=== PATIENT | male | born 1970 | race American Indian/Alaskan Native ===

== ENCOUNTER 2017-01-17 08:19 | Inpatient (IN) | payer MEDICAID, OTHER ==
[2017-01-17] MEDS ORDERED: Sodium Chloride 0.9% 1,000 ML IV STA (09:13)
[2017-01-17] MEDS ORDERED: Sodium Chloride 0.9% 1,000 ML ONE (09:43)
[2017-01-17 09:44] LABS: BASO % 0.7 % (0.0-2.0); EOS # 0.2 K/uL (0.0-0.7); EOS % 2.5 % (0.0-4.0); HEMATOCRIT 40.3 % (35.0-51.0); MEAN CORPUSCULAR HEMOGLOBIN 29.9 pg (27.0-31.0); MEAN CORPUSCULAR HGB CONC 33.6 g/dL (33.0-37.0); MEAN PLATELET VOLUME 7.9 fL (7.2-11.7); MONO # 0.7 K/uL (0.0-0.8); MONO % 10.7 % (0.0-10.0); WHITE BLOOD COUNT 6.2 K/uL (4.8-10.8)
[2017-01-17 09:51] LABS: CHLORIDE 102 mmol/L (98-107); POTASSIUM 3.8 mmol/L (3.6-5.2); SODIUM 139 mmol/L (132-148)
[2017-01-17 09:53] LABS: ALB/GLOB RATIO 1.2 (1.0-2.1); ALKALINE PHOSPHATASE 83 U/L (38-126); AMYLASE 83 U/L (30-110); AST/SGOT 30 U/L (17-59); BILIRUBIN,TOTAL 0.4 mg/dL (0.2-1.3); BLOOD UREA NITROGEN 8 mg/dL (9-20); CARBON DIOXIDE 28 mmol/L (22-30); GFR AFRICAN-AMERICAN > 60; GLUCOSE,RANDOM 86 mg/dL (75-110); TOTAL PROTEIN 7.2 g/dL (6.3-8.3)
[2017-01-17 09:54] LABS: ALT/SGPT 31 U/L (21-72)
[2017-01-17 09:55] LABS: ALCOHOL SERUM 31 mg/dl (0-10)
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
[2017-01-17] MEDS ORDERED: Aluminum Hydroxide/Magnesium Hydroxide Susp (30 mL) PO PRN (14:53)
[2017-01-17] MEDS ORDERED: Buprenorphine Hydrochloride 2 mg SL ONE ×2 (15:25→18:00)
--- NOTE | 2017-01-17 15:30 | PCM.BM ---
<Liliam Gold - Last Filed: 01/17/17 15:28> Treatment Plan Problems - Problems identified on initial assessmt potiential for opiate withdrawal Date Initiated: 01/18/17 Time Initiated: 15:29 Assessment reference: NA Status: Active Treatment assets and liabiliti Patient Assests: cooperative, ADL independent, cognitively intact Patient Liabilities: substance abuse - Milieu Protocol Maintain good personal hygiene: daily Encourage regular showers, daily Remind patient to perform daily oral care, daily Assist patient to perform ADL's Maintain personal safety: every shift Educate patient to report safety concerns to staff, every shift Monitor environment for contraband/sharps Medication safety: Monitor for expected outcome, potential side effects: every shift, Assess barriers to learning: every shift, Assess readiness for medication education: every shift <Keiry San - Last Filed: 01/18/17 12:05> - Diagnosis (1) Opiate dependence Status: Acute Interventions: 01/18/17 12:05 * Assess 7x/week regarding severity of withdrawal * Educate regarding risks, benefits, side effects and alternatives of medications * Use Motivational Interviewing for abstinence * Use CBT for relapse prevention * Medication management for withdrawal symptoms * Encourage medication assisted treatment * <Anay Encinas - Last Filed: 01/19/17 08:28> Family Contact Family involvement: Famliy/SO not involved Family contact: Patient declines to allow family contact at present - Goals for Treatment Patient goals for treatment: Transition from detox to inpatiet co-occurring program at [facility]. Discharge/Continuing Care - Education Needs Education Needs: Patient Medication, Patient Diagnosis/Disease Process, Patient Coping Skills, Patient Anger Management skills, Patient Placement options, Patient Community resources - Discharge Discharge Criteria: No longer exhibiting s/s of withdrawal, Reduction of target symptoms Discharge to:: Substance Abuse Rehab - Treatment Team Participation Patient/Family/SO Statement: 01/19/17 08:27 "I wanna go to a place that can handle both of my issues". Discussed with Family/SO: No Was Patient/Family/SO present at Treatment Team Meeting: Yes
[2017-01-18] MEDS ORDERED: Buprenorphine Hydrochloride 2 mg SL ONE ×2 (05:30→10:00)
--- NOTE | 2017-01-18 12:05 | PCM.PSYCH ---
Initial Psychiatric Evaluation - Initial Psychiatric Evaluation Type of Admission: Voluntary Legal Status: Capacity Chief Complaint (in patient's own words): "I needed detox" History of Present Illness and Precipitating Events: This is a 46-year-old -[place] male, with no child, recently homeless, unemployed. The patient is here for heroin detox. He says he uses 20 bags intranasally for the past 6 months. He also smokes $30 worth of cocaine daily, marijuana twice a week and drinks alcohol half pint every day. His longest sobriety was 3 years in his life and he started all these drugs when he was 15 years old. He has been to detox 3 times and rehabilitation once, he goes to AA and NA sometimes. Past psych history: He had anxiety and depression and he was admitted 3 or 4 times in the past but did not denies any psychiatric problems Medical history: Denies Family psych history: Denies Current Medications: Active Medications Generic Name Dose Route Start Last Admin Trade Name Freq PRN Reason Stop Dose Admin Al Hydrox/Mg Hydrox/Simethicone 30 ml 01/17/17 14:53 Maalox 30 Ml PO TID PRN Indigestion / Heartburn Amlodipine Besylate 5 mg 01/19/17 10:00 Norvasc PO DAILY ISIDRO Buprenorphine HCl 6 mg 01/19/17 10:00 Subutex SL 01/22/17 09:59 .TAPER ISIDRO Taper Clonidine HCl 0.1 mg 01/17/17 14:53 Catapres PO Q8 PRN COWS Score More or Equal to 5 Gabapentin 300 mg 01/17/17 18:00 01/18/17 10:06 Neurontin PO 300 mg BID ISIDRO Administration Hydroxyzine HCl 50 mg 01/17/17 14:53 01/18/17 04:09 Atarax PO 50 mg Q4H PRN Administration Anxiety Ibuprofen 600 mg 01/17/17 14:53 01/18/17 04:09 Motrin Tab PO 600 mg Q6H PRN Administration Pain, moderate (4-7) Loperamide HCl 2 mg 01/17/17 14:53 Imodium PO Q8 PRN Diarrhea Ondansetron HCl 4 mg 01/17/17 14:53 Zofran Tab PO Q8 PRN Nausea/Vomiting Trazodone HCl 100 mg 01/17/17 14:53 Desyrel PO HS PRN Insomnia Past Psychiatric History - Past Psychiatric History Previous Treatment History: Inpatient Pertinent Medical Hx (Current Medical&Sleep Prob, Allergies): Allergies Allergy/AdvReac Type Severity Reaction Status Date / Time No Known Allergies Allergy Unverified 01/17/17 08:22 No Known Home Med 01/17/17 Review of Systems - Neurological Neurological: UNREMARKABLE - Psychiatric Psychiatric: Abnormal Sleep Pattern, Anxiety, Difficulty Concentrating. absent : Depression, Hallucinations, Homicidal Ideation, Suicidal Ideation Mental Status Examination - Personal Presentation Personal Presentation: Looks stated age - Affect Affect: Constricted - Motor Activity Motor Activity: Calm - Reliability in Providing Information Reliability in Providing Information: Good - Speech Speech: Organized - Mood Mood: Anxious - Formal Thought Process Formal Thought Process: No Impairment - Cognitive Functions Orientation: Person, Place, Situation, Time Sensorium: Alert Attention/Concentration: Attentive Estimate of Intelligence: Average Judgement: Intact, as evidence by: Insight regarding need for hospitalization Memory: Recent intact, as evidence by: Ability to recall events of the day, Remote intact, as evidenced by: Abilit to recall sig. life events - Risk Risk: Withdrawal, Diminished functioning - Strength & Assets Inventory Strength & Assets Inventory: Cooperative - Limitations Limitations: Living alone, Other (unemployed) DSM 5 DX - DSM 5 DSM 5 Diagnosis: Opioid withdrawal Opioid use d/o - severe Alcohol use d/o - severe Cocaine use d/o - severe MDD, recurrent, mild DARREN? Tobacco use d/o mild Cannabis use d/o - mild - Recommended/Plan of Treatment Treatment Recommendations and Plan of Treatment: Subutex detox Gabapentin for augmentation and anxiety Librium for alcohol As needed meds and vitamins Attend groups and activities [place] for abstinence and CBT for relapse prevention Support and psychoeducation Consider and encourage MAT Refer to after care Consider antidep if needed 33 min Projected ELOS: 5 days Prognosis: Good with treatment Discharge Plan and Discharge Criteria: No wdw sxs Refer to rehab and MAT - Smoking Cessation Smoking Cessation Initiated: Yes
[2017-01-19] MEDS ORDERED: Buprenorphine Hydrochloride 2 mg SL ONE (01:42)
[2017-01-19] MEDS: Buprenorphine Hydrochloride 2 mg SL SCH (09:01)
--- NOTE | 2017-01-19 13:51 | PCM.PYCHPN ---
Psychiatric Progress Note - Psychiatric Progress Note Patient seen today, length of contact: 16 min Patient Chief Complaint: I am feeling anxious.' Problems Identified/Issues Discussed: Patient seen and evaluated, chart reviewed and discussed with the nurse. Patient reports irritability, anxiety and reports withdrawal symptoms including nausea, diarrhoea, cramps, sweating, joint pains and headaches. Patient reports irritable mood but denies any suicidal ideation or homicidal ideation. He denies any auditory or visual hallucinations. He started tolerating the withdrawal medications and denies any side effects. Supportive therapy and psychoeducation were given. Medication Change: Yes (subutex taper) Medical Record Reviewed: Yes Mental Status Examination - Cognitive Function Orientation: Person, Place, Situation, Time Memory: Intact Attention: WNL Concentration: Poor Association: WNL Fund of Knowledge: Poor - Mood Mood: Anxious - Affect Affect: Constricted - Speech Speech: Soft - Formal Thought Process Formal Thought Process: No Impairment - Suicidal Ideation Suicidal Ideation: No - Homicidal Ideation Homicidal Ideation: No Goal/Treatment Plan - Goal/Treatment Plan Need for Continued Stay: Discharge may exacerbated symptoms, Severe functional impairment Progress Toward Problem(s) and Goals/Treatment Plan: Opioid withdrawal Opioid use d/o - severe Alcohol use d/o - severe Cocaine use d/o - severe MDD, recurrent, mild DARREN? Tobacco use d/o mild Cannabis use d/o - mild Subutex detox Gabapentin for augmentation and anxiety Librium for alcohol As needed meds and vitamins Attend groups and activities [place] for abstinence and CBT for relapse prevention Support and psychoeducation Consider and encourage MAT Refer to after care Consider antidep if needed - Smoking Cessation Smoking Cessation Initiated: No
[2017-01-20] MEDS: Buprenorphine Hydrochloride 2 mg SL SCH (09:36)
--- NOTE | 2017-01-20 12:55 | PCM.PYCHPN ---
Psychiatric Progress Note - Psychiatric Progress Note Patient seen today, length of contact: 16 min Patient Chief Complaint: "I feel okay" Problems Identified/Issues Discussed: The pt is seen, chart reviewed, case discussed with staff. Pt reports feeling "so-so." Pt was given 6 mg Subutex today. Pt is restless and reports feeling anxious. Pt denies any nausea, vomiting, diarrhea. The pt is compliant with medications and reports no side-effects. Symptoms are improving but needs more time to stabilize. After care discussed, support and psychoeducation given. Medical Problems: None reported Diagnostic Results: Reviewed DSM 5 Symptoms Update: Improving with treatment Medication Change: Yes (subutex taper) Medical Record Reviewed: Yes Mental Status Examination - Cognitive Function Orientation: Person, Place, Situation, Time Memory: Intact Attention: WNL Concentration: WNL Association: [facility] Fund of Knowledge: [facility] Decription of patient's judgement and insights: Fair - Mood Mood: Anxious - Affect Affect: Other (Appropriate) - Speech Speech: Appropriate - Formal Thought Process Formal Thought Process: No Impairment - Suicidal Ideation Suicidal Ideation: No - Homicidal Ideation Homicidal Ideation: No Goal/Treatment Plan - Goal/Treatment Plan Need for Continued Stay: Remain at risks for inpatient hospitalization, Discharge may exacerbated symptoms, Severe functional impairment Progress Toward Problem(s) and Goals/Treatment Plan: Continue medications Support and psychoeducation daily Attend groups and activities daily After care planning by LUNA Estimated Date of D/C: 01/10/17 - Smoking Cessation Smoking Cessation Initiated: Yes
[2017-01-21] MEDS: Buprenorphine Hydrochloride 2 mg SL SCH (09:08)
--- NOTE | 2017-01-21 14:58 | PCM.PYCHPN ---
Psychiatric Progress Note - Psychiatric Progress Note Patient seen today, length of contact: 15 minutes Patient Chief Complaint: I'm feeling better today. Problems Identified/Issues Discussed: Patient seen. Chart reviewed. Case discussed with the staff. Issues related to illness and treatment were discussed with the patient. Reported compliant with treatment with no adverse affects. Tolerating treatment very well. Today patient reported he feels better than yesterday but still has some anxiety because of not drinking. We'll start Librium 25 mg by mouth every 12 when necessary for 24 hours and then stop. We will continue rest of the treatment as before. At the time of evaluation, patient was awake alert oriented 3, had no delusions, no auditory or visual hallucinations, no suicidal ideations or homicidal ideations. Medical Problems: None reported Diagnostic Results: Reviewed DSM 5 Symptoms Update: Improving with treatment Medication Change: Yes (Start Librium 25 mg every 12 when necessary) Medical Record Reviewed: Yes Mental Status Examination - Cognitive Function Orientation: Person, Place, Situation, Time Memory: Intact Attention: WNL Concentration: WNL Association: [facility] Fund of Knowledge: [facility] Decription of patient's judgement and insights: Fair - Mood Mood: Anxious (Less than before) - Affect Affect: Other (Appropriate) - Speech Speech: Appropriate - Formal Thought Process Formal Thought Process: No Impairment Psychotic Thoughts and Behaviors: None - Suicidal Ideation Suicidal Ideation: No - Homicidal Ideation Homicidal Ideation: No Goal/Treatment Plan - Goal/Treatment Plan Need for Continued Stay: Remain at risks for inpatient hospitalization, Discharge may exacerbated symptoms, Severe functional impairment Progress Toward Problem(s) and Goals/Treatment Plan: Continue medications Support and psychoeducation daily Attend groups and activities daily Start Librium 25 mg by mouth every 12 when necessary for alcohol withdrawal symptoms Continue rest of the treatment as before Wants to go to [facility] for continuation of treatment after discharge from the hospital Estimated Date of D/C: 01/10/17 - Smoking Cessation Smoking Cessation Initiated: Yes
--- NOTE | 2017-01-22 15:23 | PCM.PYCHPN ---
Psychiatric Progress Note - Psychiatric Progress Note Patient seen today, length of contact: 15 minutes Patient Chief Complaint: I'm feeling much better today. Problems Identified/Issues Discussed: Patient seen. Chart reviewed. Case discussed with the staff. Issues related to illness and treatment were discussed with the patient. Reported compliant with treatment with no adverse affects. Tolerating treatment very well. Today patient reported he feels much better than yesterday. At the time of evaluation , patient was awake alert oriented 3, had no delusions, no auditory or visual hallucinations, no suicidal ideations or homicidal ideations. Medical Problems: None reported Diagnostic Results: Reviewed DSM 5 Symptoms Update: Improving with treatment Medication Change: No Medical Record Reviewed: Yes Mental Status Examination - Cognitive Function Orientation: Person, Place, Situation, Time Memory: Intact Attention: WNL Concentration: WNL Association: [facility] Fund of Knowledge: [facility] Decription of patient's judgement and insights: Fair - Mood Mood: Anxious (Less than before) - Affect Affect: Other (Appropriate) - Speech Speech: Appropriate - Formal Thought Process Formal Thought Process: No Impairment Psychotic Thoughts and Behaviors: None - Suicidal Ideation Suicidal Ideation: No - Homicidal Ideation Homicidal Ideation: No Goal/Treatment Plan - Goal/Treatment Plan Need for Continued Stay: Remain at risks for inpatient hospitalization, Discharge may exacerbated symptoms, Severe functional impairment Progress Toward Problem(s) and Goals/Treatment Plan: Continue medications Support and psychoeducation daily Attend groups and activities daily Continue treatment as before Wants to go to [facility] for continuation of treatment after discharge from the hospital Estimated Date of D/C: 01/24/17 - Smoking Cessation Smoking Cessation Initiated: Yes
[2017-01-23 10:26] VITALS: RESP 18
--- NOTE | 2017-01-23 14:06 | PCM.PYCHPN ---
Psychiatric Progress Note - Psychiatric Progress Note Patient seen today, length of contact: 15 minutes Patient Chief Complaint: I'm feeling much better today. Problems Identified/Issues Discussed: Patient seen. Chart reviewed. Case discussed with the staff. Issues related to illness and treatment were discussed with the patient. Reported compliant with treatment with no adverse affects. Tolerating treatment very well. Today patient reported he feels much better. At the time of evaluation, patient was awake alert oriented 3, had no delusions, no auditory or visual hallucinations , no suicidal ideations or homicidal ideations. Medical Problems: None reported Diagnostic Results: Reviewed DSM 5 Symptoms Update: Improving with treatment Medication Change: No Medical Record Reviewed: Yes Mental Status Examination - Cognitive Function Orientation: Person, Place, Situation, Time Memory: Intact Attention: WNL Concentration: WNL Association: [facility] Fund of Knowledge: [facility] Decription of patient's judgement and insights: Fair - Mood Mood: Neutral - Affect Affect: Other (Appropriate) - Speech Speech: Appropriate - Formal Thought Process Formal Thought Process: No Impairment Psychotic Thoughts and Behaviors: None - Suicidal Ideation Suicidal Ideation: No - Homicidal Ideation Homicidal Ideation: No Goal/Treatment Plan - Goal/Treatment Plan Need for Continued Stay: Remain at risks for inpatient hospitalization, Discharge may exacerbated symptoms, Severe functional impairment Progress Toward Problem(s) and Goals/Treatment Plan: Continue medications Support and psychoeducation daily Attend groups and activities daily Continue treatment as before Wants to go to [facility] for continuation of treatment after discharge from the hospital Estimated Date of D/C: 01/24/17 - Smoking Cessation Smoking Cessation Initiated: Yes
[2017-01-24 09:28] VITALS: BP 121/73; PULSE 77; TEMP 98.3; O2SAT 100
--- NOTE | 2017-01-24 15:30 | PCM.PYCHDC ---
Mental Status Examination - Mental Status Examination Orientation: Person, Place, Situation, Time Memory: Intact Mood: Neutral Affect: Other (Appropriate) Speech: Appropriate Attention: WNL Concentration: WNL Association: WNL Fund of Knowledge: WNL Formal Thought Process: No Impairment Description of patient's judgement and insight: Fair Psychotic Thoughts and Behaviors: None Suicidal Ideation: No Current Homicidal Ideation?: No Discharge Summary - Discharge Note Reason for Hospitalization: Opiate use disorder Alcohol use disorder Cocaine use disorder Major depressive disorder Cannabis use disorder Consultations:: List each consultation separately and include: 1. Reason for request. 2. Findings. 3. Follow-up Summary of Hospital Course include:: 1. Description of specific treatment plan utilized for patients during their course of treatmen. 2. Summarize the time- course for resolution of acute symptoms and/or regressed behaviors. 3. Describe issues identified and worked on during hospitalization. 4. Describe medication utilized. 5. Describe medical problems identified and treated. 6. Reassessment of suicide risk Summary of Hospital Course: This is a 46-year-old -[place] male, with no child, recently homeless, unemployed. The patient is here for heroin detox. He says he uses 20 bags intranasally for the past 6 months. He also smokes $30 worth of cocaine daily, marijuana twice a week and drinks alcohol half pint every day. His longest sobriety was 3 years in his life and he started all these drugs when he was 15 years old. He has been to detox 3 times and rehabilitation once, he goes to and [facility] sometimes. Past psych history: He had anxiety and depression and he was admitted 3 or 4 times in the past but did not denies any psychiatric problems Medical history: Denies Family psych history: Denies During his stay in the hospital patient was started on buprenorphine taper for opiate withdrawal symptoms. Patient was also started on other when necessary medications. Patient also got help with Librium. With her treatment patient started feeling better. Today patient had no withdrawal symptoms, was stable and ready for discharge. At the time of evaluation and discharge, patient was awake alert oriented 3, had no delusions, no auditory or visual hallucinations , no suicidal ideations or homicidal ideations. Patient was discharged in a stable condition. - Final Diagnosis (DSM 5) Condition upon Discharge: STABLE Disposition: HOME/ ROUTINE Follow-up Treatment Plan: [facility] - Smoking Cessation Smoking Cessation Medication prescribed: Yes - Antipsychotic Medications Pt discharged on 2 or more routine antipsychotic medications: No
== END 2017-01-24 10:45 | disposition home or self-care (01) | DRG 745 ==
LOC: C.ER 08:19 → C.7D 14:17
PROVIDERS: ADMIT Psychiatry & Neurology Psychiatry; ATTEND Psychiatry & Neurology Psychiatry
PROC: HZ2ZZZZ Detoxification Services for Substance Abuse Treatment (ICD-10-PCS; principal; 2017-01-17)
PROC: HZ59ZZZ Individual Psychotherapy for Substance Abuse Treatment, Supportive (ICD-10-PCS; 2017-01-17)
PROC: HZ46ZZZ Group Counseling for Substance Abuse Treatment, Psychoeducation (ICD-10-PCS; 2017-01-17)
PROC: GZ3ZZZZ Medication Management (ICD-10-PCS; 2017-01-17)
PROC: GZHZZZZ Group Psychotherapy (ICD-10-PCS; 2017-01-17)
DX: F11.23 Opioid dependence with withdrawal (principal); F33.0 Major depressive disorder, recurrent, mild; F10.20 Alcohol dependence, uncomplicated; F41.1 Generalized anxiety disorder; F14.10 Cocaine abuse, uncomplicated; F12.10 Cannabis abuse, uncomplicated; S05.12XA Contusion of eyeball and orbital tissues, left eye, initial encounter; Y09 Assault by unspecified means; Y92.9 Unspecified place or not applicable; Z72.0 Tobacco use

== ENCOUNTER 2017-02-01 11:37 | Emergency (ER) | payer MEDICAID, OTHER ==
[2017-02-01 11:54] VITALS: BP 117/69; TEMP 98.5
--- NOTE | 2017-02-01 11:55 | C.PDOC ---
History Of Present Illness 46M requesting rx for gabapentin, motrin, and maalox. he says he has taken gabapentin for "body pain" for 4 years but he is currently in treatment at [facility] and they are not giving him his prior dose which he says was 800mg TID. he also usually takes motrin but says they are giving him a generic there that is irritating to his stomach and he would like brand name rx. he also is requesting maalox for stomach irritation as stated prior. Time Seen by Provider: 02/01/17 11:55 Chief Complaint (Nursing): Med Refill Past Medical History Vital Signs: Last Vital Signs Temp 98.5 F 02/01/17 11:52 Pulse 97 H 02/01/17 11:52 Resp 20 02/01/17 11:52 BP 117/69 02/01/17 11:52 Pulse Ox 99 02/01/17 11:55 - Medical History PMH: Denies: Diabetes, Hepatitis, HIV, HTN, Seizures, Sexually Transmitted Disease - [facility] Procedures DETOXIFICATION SERVICES FOR SUBSTANCE ABUSE TREATMENT (01/17/17) GROUP GEOMETRY PROFESSOR FOR SUBSTANCE ABUSE TREATMENT, PSYCHOEDUCATION (01/17/17) GROUP PSYCHOTHERAPY (01/17/17) INDIV PSYCHOTHERAPY FOR SUBSTANCE ABUSE TREATMENT, SUPPORT (01/17/17) MEDICATION MANAGEMENT (01/17/17) Family History: States: Other Other Family History: nc - Social History Hx Alcohol Use: Yes Hx Substance Use: Yes Review Of Systems Constitutional: Negative for: Fever Cardiovascular: Negative for: Chest Pain Respiratory: Negative for: Shortness of Breath Gastrointestinal: Negative for: Vomiting Physical Exam - Physical Exam Appears: Well, Non-toxic, No Acute Distress Skin: Warm, Dry Head: Atraumatic Eye(s): bilateral: PERRL Oral Mucosa: Moist Neck: Normal ROM Cardiovascular: Rhythm Regular Respiratory: No Decreased Breath Sounds, No Accessory Muscle Use Neurological/Psych: Oriented x3, Normal Motor, Normal Sensation, Other (no focal deficits) Gait: Steady ED Course And Treatment O2 Sat by Pulse Oximetry: 99 Disposition - Disposition Referrals: [facility] [Outside] Disposition: HOME/ ROUTINE Disposition Time: 12:18 Condition: GOOD Additional Instructions: Please follow up with your doctor. Return to the ER for any worsening symptoms or for any other concerns. Prescriptions: Gabapentin [Neurontin] 600 mg PO TID #21 tablet Ibuprofen [Motrin] 600 mg PO Q6H #10 tab Mag Hydrox/Aluminum Hyd/Simeth [Maalox Maximum Strength Susp] 30 ml PO BID PRN # 1 oral.susp PRN Reason: Indigestion Forms: General Discharge Instructions - Clinical Impression Clinical Impression: Medication refill
[2017-02-01] MEDS ORDERED: Alum-Mag Hydrox-Simethicone Susp (30 mL) PO STA (12:08)
[2017-02-01] MEDS ORDERED: Aluminum Hydroxide/Magnesium Hydroxide Susp (30 mL) ONE (12:13)
[2017-02-01 12:24] VITALS: PULSE 79; RESP 18; O2SAT 97
== END 2017-02-01 12:25 | disposition home or self-care (01) ==
LOC: C.ER 11:37 → SUPCPDRO 11:37 → C.ER 12:25
DX: Z76.0 Encounter for issue of repeat prescription (principal)

== ENCOUNTER 2017-05-31 07:49 | Inpatient (IN) | payer MEDICAID, OTHER ==
[2017-05-31 07:52] VITALS: BMI 31.1
[2017-05-31 08:49] LABS: BASO # 0.1 K/uL (0.0-0.2); BASO % 0.4 % (0.0-2.0); EOS % 0.2 % (0.0-4.0); HEMATOCRIT 43.5 % (35.0-51.0); LYMPH # 2.4 K/uL (1.0-4.3); LYMPH % 16.8 % (20.0-40.0); MEAN CELL VOLUME 87.6 fL (80.0-94.0); MEAN CORPUSCULAR HEMOGLOBIN 30.2 pg (27.0-31.0); MEAN CORPUSCULAR HGB CONC 34.4 g/dL (33.0-37.0); MEAN PLATELET VOLUME 7.9 fL (7.2-11.7); MONO % 6.7 % (0.0-10.0); WHITE BLOOD COUNT 14.5 K/uL (4.8-10.8)
[2017-05-31 09:00] LABS: ALB/GLOB RATIO 1.3 (1.0-2.1); ALCOHOL SERUM < 10 mg/dl (0-10); ALKALINE PHOSPHATASE 81 U/L (38-126); ALT/SGPT 43 U/L (21-72); AST/SGOT 49 U/L (17-59); BILIRUBIN,TOTAL 0.6 mg/dL (0.2-1.3); BLOOD UREA NITROGEN 12 mg/dL (9-20); CALCIUM 8.9 mg/dl (8.6-10.4); CARBON DIOXIDE 28 mmol/L (22-30); CHLORIDE 98 mmol/L (98-107); GFR AFRICAN-AMERICAN > 60; GLUCOSE,RANDOM 139 mg/dL (75-110); POTASSIUM 4.1 mmol/L (3.6-5.2); SODIUM 135 mmol/L (132-148); TOTAL PROTEIN 7.9 g/dL (6.3-8.3)
[2017-05-31 09:17] LABS: URINE BILIRUBIN NEGATIVE (NEGATIVE); URINE BLOOD NEGATIVE (NEGATIVE); URINE COLOR Yellow (YELLOW); URINE GLUCOSE (UA) NORMAL (Normal); URINE KETONE NEGATIVE (NEGATIVE); URINE LEUKOCYTE ESTERASE NEG Leu/uL (Negative); URINE PROTEIN NEGATIVE (NEGATIVE); URINE UROBILINOGEN NORMAL mg/dL (0.2-1.0); WBC URINE < 1 /hpf (0-5)
[2017-05-31 09:59] VITALS: PULSE 84; O2SAT 96
--- NOTE | 2017-05-31 12:44 | C.PDOC ---
Time Seen by Provider: 05/31/17 08:11 Chief Complaint (Nursing): Psychiatric Evaluation History Per: Patient Onset/Duration Of Symptoms: Days (3) Current Symptoms Are (Timing): Still Present Suicide/Self Injury Attempted (Context): None Modifying Factor(s): Alcohol, Cocaine Severity: Moderate Associated Symptoms: Depression Additional History Per: Prior Records Past Medical History Reviewed: Historical Data, Nursing Documentation, Vital Signs Vital Signs: Last Vital Signs Temp 97.3 F L 05/31/17 11:58 Pulse 84 05/31/17 11:58 Resp 16 05/31/17 11:58 BP 123/77 05/31/17 11:58 Pulse Ox 96 05/31/17 11:58 - Medical History PMH: Anxiety, Depression, Hypercholesterolemia ( PER PATIENT) - [facility] Procedures DETOXIFICATION SERVICES FOR SUBSTANCE ABUSE TREATMENT (01/17/17) GROUP FAST FOODS WORKER FOR SUBSTANCE ABUSE TREATMENT, PSYCHOEDUCATION (01/17/17) GROUP PSYCHOTHERAPY (01/17/17) INDIV PSYCHOTHERAPY FOR SUBSTANCE ABUSE TREATMENT, SUPPORT (01/17/17) MEDICATION MANAGEMENT (01/17/17) Family History: States: Unknown Family Hx - Social History Hx Tobacco Use: Yes Hx Alcohol Use: Yes ("I WAS CLEAN FOR 4 MONTHS") Hx Substance Use: Yes ("I USE CRACK AND HEROIN WHEN I DRINK") - Immunization History Hx Tetanus Toxoid Vaccination: No Hx Influenza Vaccination: No Hx Pneumococcal Vaccination: No Review Of Systems Except As Marked, All Systems Reviewed And Found Negative. Constitutional: Negative for: Fever Cardiovascular: Negative for: Chest Pain Respiratory: Negative for: Shortness of Breath Gastrointestinal: Negative for: Vomiting, Abdominal Pain Musculoskeletal: Negative for: Neck Pain Skin: Negative for: Rash Neurological: Negative for: Weakness, Seizures Physical Exam - Physical Exam Appears: Non-toxic, No Acute Distress Skin: Normal Color, Warm, Dry, No Rash Head: Atraumatic, Normacephalic Eye(s): bilateral: Normal Inspection, PERRL, EOMI Neck: Normal ROM, Supple Cardiovascular: Rhythm Regular Respiratory: Normal Breath Sounds, No Accessory Muscle Use Gastrointestinal/Abdominal: Soft, No Tenderness Back: No CVA Tenderness Extremity: Normal ROM Neurological/Psych: Oriented x3, Normal Motor, Normal Sensation ED Course And Treatment - Laboratory Results Result Diagrams: 05/31/17 08:42 05/31/17 08:42 O2 Sat by Pulse Oximetry: 96 Pulse Ox Interpretation: Normal Progress Note: Pt is medically stable for psychiatric admission. Disposition Counseled Patient/Family Regarding: Studies Performed, Diagnosis, Smoking Cessation - Disposition Disposition: HOSPITALIZED Disposition Time: 12:44 Condition: STABLE - Clinical Impression Clinical Impression: Depression Decision To Admit - Pt Status Changed To: Hospital Disposition Of: Inpatient - Admit Certification Admit to Inpatient:: After my assessment, the patient will require hospitalization for at least two midnights. This is because of the severity of symptoms shown, intensity of services needed, and/or the medical risk in this patient being treated as an outpatient. - InPatient: Physician Admission Certification: I certify that this patient requires 2 or more midnights of care for the following reason:: Psych. - . Bed Request Type: Psychiatry Admitting Physician: Robb Barrientos Patient Diagnosis: Depression
[2017-05-31 13:43] VITALS: BP 110/67; RESP 18; TEMP 99.2
--- NOTE | 2017-05-31 20:18 | PCM.BM ---
Treatment Plan Problems - Problems identified on initial assessmt Problem 1 Date Initiated: 05/31/17 Time Initiated: 20:15 Depression Date Initiated: 05/31/17 Time Initiated: 15:45 Assessment reference: NA Status: Active substance abuse Date Initiated: 05/31/17 Time Initiated: 15:45 Assessment reference: NA Status: Active Treatment assets and liabiliti Patient Assests: cooperative, ADL independent, cognitively intact Patient Liabilities: live alone, substance abuse
--- NOTE | 2017-06-01 14:36 | PCM.PSYCH ---
Initial Psychiatric Evaluation - Initial Psychiatric Evaluation Type of Admission: Voluntary Legal Status: Capacity History of Present Illness and Precipitating Events: Pt is a 46 year old, male, presenting to the ED for a crisis evaluation due to depression and suicidal ideation. Pt reports relapsing days 2 ago on alcohol and crack after being sober for 4 months. Pt states that his relapsed has increased depressive symptoms and he has been having suicidal thoughts for 2 days. Pt states, "I'm not going down the spiral of addiction again." Pt reports usinng various amounts of alcohol and crack. Pt reports that he's been staying in a assisted and has been attending outpatient treatment at [facility]. Pt is alert and oriented x3, he is depressed with flat affect. Pt's speech is clear, his thoughts are organized. Pt continues to endorse suicidal ideations, he admits to 1 prior attempt, "years ago" by cutting his wrist. Past Psychiatric History - Past Psychiatric History Previous Treatment History: None Pertinent Medical Hx (Current Medical&Sleep Prob, Allergies): Allergies Allergy/AdvReac Type Severity Reaction Status Date / Time No Known Allergies Allergy Verified 05/31/17 07:51 Cholesterol Med 05/31/17 Gabapentin [Neurontin] 800 mg PO TID 05/31/17 QUEtiapine [SEROquel] 300 mg PO DAILY 05/31/17 Review of Systems - Review of Systems All systems: reviewed and no additional remarkable complaints except - Psychiatric Psychiatric: Anxiety, Depression Mental Status Examination - Personal Presentation Personal Presentation: Looks stated age - Affect Affect: Constricted, Depressed - Motor Activity Motor Activity: Calm - Reliability in Providing Information Reliability in Providing Information: Fair - Speech Speech: Organized - Mood Mood: Depressed, Anxious - Formal Thought Process Formal Thought Process: No Impairment - Obsessions/Compulsions Obsessions: No Compulsions: No - Cognitive Functions Orientation: Person, Place, Situation, Time Sensorium: Alert Attention/Concentration: Attentive Abstract Thinking: [place] Estimate of Intelligence: Below average Judgement: Imparied, as evidence by: Poor judgement, Intact, as evidence by: Insight regarding need for hospitalization - Risk Risk: Diminished functioning - Limitations Limitations: Living alone DSM 5 DX - Smoking Cessation Smoking Cessation Initiated: No
--- NOTE | 2017-06-01 14:37 | PCM.PYCHDC ---
Mental Status Examination - Mental Status Examination Orientation: Person, Place, Situation, Time Memory: Intact Mood: Neutral Affect: Constricted Speech: Soft Attention: WNL Concentration: WNL Association: WNL Fund of Knowledge: WNL Formal Thought Process: No Impairment Description of patient's judgement and insight: partially impaired Psychotic Thoughts and Behaviors: denies any AVH Suicidal Ideation: No Current Homicidal Ideation?: No Discharge Summary - Discharge Note Consultations:: List each consultation separately and include: 1. Reason for request. 2. Findings. 3. Follow-up Summary of Hospital Course include:: 1. Description of specific treatment plan utilized for patients during their course of treatmen. 2. Summarize the time- course for resolution of acute symptoms and/or regressed behaviors. 3. Describe issues identified and worked on during hospitalization. 4. Describe medication utilized. 5. Describe medical problems identified and treated. 6. Reassessment of suicide risk - Final Diagnosis (DSM 5) Condition upon Discharge: STABLE Disposition: AGAINST MEDICAL ADVICE - Smoking Cessation Smoking Cessation Medication prescribed: No - Antipsychotic Medications Pt discharged on 2 or more routine antipsychotic medications: No
== END 2017-05-31 19:30 | disposition left against medical advice (07) | DRG 426 ==
LOC: C.ER 07:49 → C.5E 12:45 → C.9E 12:45
PROVIDERS: ADMIT Psychiatry & Neurology Psychiatry; ATTEND Psychiatry & Neurology Psychiatry
DX: F32.9 Major depressive disorder, single episode, unspecified (principal); E78.00 Pure hypercholesterolemia, unspecified; F41.9 Anxiety disorder, unspecified